=== PATIENT | female | born 1975 | race Caucasian/White ===

== ENCOUNTER → 2024-04-09 07:26 | Outpatient (REF) | payer BC, SELFPAY ==
[2024-04-09 08:09] LABS: % Basophils 1.2 % (0-2); % Eosinophils 3.9 % (0-6); % Immature Granulocytes 0.2 % (0-0.5); % Lymphocytes 25.4 % (20.5-51.1); % Neutrophils 63.3 % (42.2-75.2); Absolute Basophils 0.1 10^3/uL (0-0.2); Absolute Eosinophils 0.2 10^3/uL (0-0.7); Absolute Lymphocytes 1.5 10^3/uL (1.2-3.4); Absolute Monocytes 0.4 10^3/uL (0.1-0.6); Absolute Neutrophils 3.7 10^3/uL (1.4-6.5); Hemoglobin 12.4 g/dL (12.0-16.0); Mean Corp Hgb Conc. 34.4 g/dL (33.0-37.0); Mean Corpuscular Hgb 29.5 pg (27.0-31.0); Mean Corpuscular Volume 85.7 fL (81.0-99.0); Mean Platelet Volume 10.1 fL (7.4-10.4); Nucleated Red Blood Cells % 0 %; Platelet Count 198 10^3/uL (130-400); Red Cell Dist. Width 12.6 % (11.5-14.5); White Blood Cell Count 5.8 10^3/uL (4.8-10.8)
[2024-04-09 08:49] LABS: ALT (SGPT) 22 U/L (0-35); AST (SGOT) 34 U/L (14-36); Albumin 4.6 g/dl (3.5-5.0); Alkaline Phosphatase 50 U/L (38-126); Blood Urea Nitrogen 18 mg/dl (7-17); Calcium 9.3 mg/dl (8.4-10.2); Carbon Dioxide 23 mmol/L (22-30); Chloride 104 mmol/L (98-107); Glucose 92 mg/dl (70-99); Potassium 3.8 mmol/L (3.5-5.1); Sodium 139 mmol/L (135-145); Total Bilirubin 0.7 mg/dl (0.2-1.3); eGFR > 60.00
[2024-04-09 08:57] LABS: Testosterone, Total 15.6 ng/dl
[2024-04-09 09:03] LABS: Glycohemoglobin (HgbA1c) 5.3 % (4.0-5.6)
[2024-04-09 10:00] LABS: HDL Cholesterol 83 mg/dl; LDL Cholesterol, Calculated 86 mg/dl; Total Cholesterol 177 mg/dl (50-199); Triglyceride 44 mg/dl (10-149); Very Low Density Lipoprotein 8 mg/dl (0-30)
== END ==
LOC: REG 07:26
PROVIDERS: ATTENDING PHYSICIAN Physician Assistant Medical; FAMILY PHYSICIAN Family Medicine
DX: Z00.00 Encounter for general adult medical examination without abnormal findings (principal)
CPT/HCPCS: 36415; 80053; 80061; 83036; 84270; 84402; 84403; 85025

== ENCOUNTER → 2024-06-03 06:27 | Day surgery (SDC) | payer BC, SELFPAY | LOC: GI 06:27 | PROVIDERS: ATTENDING PHYSICIAN Internal Medicine | DX: Z12.11 Encounter for screening for malignant neoplasm of colon (principal); K64.9 Unspecified hemorrhoids; D12.2 Benign neoplasm of ascending colon | CPT/HCPCS: 45380; 88305 ==

== ENCOUNTER → 2024-08-24 14:01 | Outpatient (REF) | payer BC, SELFPAY | LOC: WDC 14:01 | PROVIDERS: ATTENDING PHYSICIAN Obstetrics & Gynecology | DX: Z12.31 Encounter for screening mammogram for malignant neoplasm of breast (principal) | CPT/HCPCS: 77063; 77067 ==

== ENCOUNTER 2025-03-25 08:53 | Emergency (ER) | payer SELFPAY ==
[2025-03-25 09:18] VITALS: BP 127/76
[2025-03-25 09:29] VITALS: BP 111/85
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
[2025-03-25 10:00] VITALS: BP 109/71
[2025-03-25 10:24] VITALS: BP 110/72
[2025-03-25 11:00] VITALS: BP 100/65
[2025-03-25] MEDS: MOTRIN 600 MG PO (11:13)
== END 2025-03-25 11:35 | disposition home or self-care (01) ==
LOC: EMR 08:53
PROVIDERS: EMERGENCY PHYSICIAN Student in an Organized Health Care Education/Training Program; FAMILY PHYSICIAN Family Medicine
DX: S16.1XXA Strain of muscle, fascia and tendon at neck level, initial encounter (principal); H93.13 Tinnitus, bilateral; R51.9 Headache, unspecified; V47.5XXA Car driver injured in collision with fixed or stationary object in traffic accident, initial encounter
CPT/HCPCS: 99284; 70450; 72125; 93005

== ENCOUNTER → 2025-05-10 14:38 | Outpatient (REF) | payer BC, SELFPAY ==
[2025-05-14 07:46] LABS: HPV, High Risk Not Detected; HPV, High Risk Source Cervical
== END ==
LOC: CPAP 14:38
PROVIDERS: ATTENDING PHYSICIAN Obstetrics & Gynecology
DX: Z01.419 Encounter for gynecological examination (general) (routine) without abnormal findings (principal); Z11.51 Encounter for screening for human papillomavirus (HPV)
CPT/HCPCS: 87624; G0123

== ENCOUNTER → 2025-05-19 20:24 | Outpatient (REF) | payer BC, SELFPAY | LOC: PAVMRI 20:24 | PROVIDERS: ATTENDING PHYSICIAN Physician Assistant; FAMILY PHYSICIAN Physician Assistant Medical | DX: M54.16 Radiculopathy, lumbar region (principal) | CPT/HCPCS: 72148 ==

== ENCOUNTER → 2025-06-14 12:47 | Outpatient (REF) | payer BC, SELFPAY ==
[2025-06-14 13:22] LABS: INR 1.01; PT 13.6 Sec (11.4-14.6)
[2025-06-14 13:26] VITALS: BP 129/80; BP_SYST 16
== END ==
LOC: RADI 12:47
PROVIDERS: ATTENDING PHYSICIAN Physician Assistant; FAMILY PHYSICIAN Family Medicine; OTHER PHYSICIAN Physician Assistant
DX: M47.26 Other spondylosis with radiculopathy, lumbar region (principal); M48.061 Spinal stenosis, lumbar region without neurogenic claudication; D68.8 Other specified coagulation defects
CPT/HCPCS: 36415; 62323; 85610